=== PATIENT | female | born 1935 | race Two or more races ===

== ENCOUNTER 2018-09-08 14:46 | Emergency (ER) | payer MEDICARE, MEDICAID ==
[~2018-09-08] VITALS: Ht 147.3 cm; Wt 72.0 kg
[2018-09-08] MEDS ORDERED: ACETAMINOPHEN 325MG TABLET PO STA (15:24)
[2018-09-08 16:13] LABS: CHLORIDE 105 mEq/L (98-107)
[2018-09-08 16:14] LABS: BASOPHILS % 0.9 % (0.0-2.0); EOSINOPHILS % 1.2 % (0.0-5.0); HEMATOCRIT. 35.2 % (36.0-48.0); LYMPHOCYTES % 25.9 % (20.0-50.0); MEAN CORPUSCULAR HEMOGLOBIN 30.1 pg (28.0-32.0); MEAN CORPUSCULAR VOLUME 88.6 fL (81.0-99.0); MEAN PLATELET VOLUME 8.7 fl (7.4-10.4); MONOCYTES % 7.2 % (2.0-8.0); NEUTROPHILS % 64.8 % (40.0-76.0); PLATELET 268 x1000/uL (130-400); PROTHROMBIN TIME 10.2 sec (9.6-11.0); RED BLOOD CELL COUNT 3.98 mill/uL (4.2-5.4); RED CELL DISTRIBUTION WIDTH 13.4 % (11.6-14.6)
[2018-09-08] MEDS ORDERED: SODIUM CHLORIDE 0.9% 1,000 ML IV NR (16:21)
[2018-09-08 16:38] LABS: CLARITY URINE CLEAR (CLEAR); COLOR URINE YELLOW (YELLOW); KETONES URINE NEGATIVE (NEGATIVE); LEUKOCYTE ESTERASE URINE 2+ (NEGATIVE); NITRITE URINE NEGATIVE (NEGATIVE); OCCULT BLOOD URINE NEGATIVE (NEGATIVE); PROTEIN URINE NEGATIVE (NEGATIVE); SPECIFIC GRAVITY URINE 1.014 (1.005-1.030); UROBILINOGEN URINE 0.2 E.U./dL (0.2-1.0)
[2018-09-08] MEDS ORDERED: LEVOFLOXACIN 500MG PREMIX 100 ML IV ONE (16:45)
[2018-09-08 18:54] VITALS: BP 135/70
== END 2018-09-08 19:07 | disposition home or self-care (01) ==
LOC: ER 15:54
DX: N10 Acute pyelonephritis (principal); D73.4 Cyst of spleen; N28.9 Disorder of kidney and ureter, unspecified; E11.9 Type 2 diabetes mellitus without complications; I10 Essential (primary) hypertension; Z88.0 Allergy status to penicillin; Z90.49 Acquired absence of other specified parts of digestive tract
CPT/HCPCS: 36415; 74176; 80053; 81003; 83605; 83690; 85025; 85610; 87086; 96365; 96366; 99284; J1956